=== PATIENT | male | born 1960 | race Caucasian/White ===

== ENCOUNTER 2020-10-08 14:07 | Outpatient (CLI) | payer MEDICARE ==
[2020-10-08] MEDS ORDERED: OMNIPAQUE 350 MG/ML, 100ML BOTTLE ONE (14:30)
[2020-10-08 14:38] LABS: CREATININE 0.89 mg/dL (0.7-1.3)
== END 2020-10-08 23:59 | disposition home or self-care (01) ==
LOC: RAD 14:07
PROVIDERS: ATTEND Physician Assistant Medical
DX: K57.30 Diverticulosis of large intestine without perforation or abscess without bleeding (principal); R16.2 Hepatomegaly with splenomegaly, not elsewhere classified
CPT/HCPCS: 36415; 74177; 82565; Q9967

== ENCOUNTER 2020-12-06 20:24 | Emergency (ER) | payer MEDICARE ==
[2020-12-06] MEDS ORDERED: SODIUM CHLORIDE FLUSH 10ML SYR IVF ONE (22:00)
[2020-12-06 22:22] LABS: BASOPHILS % (AUTO) 1 % (0-1); EOSINOPHILS % (AUTO) 2 % (1-7); LYMPHOCYTES % (AUTO) 17 % (22-44); MEAN CORPUSCULAR HEMOGLOBIN 22.8 pg (27.5-34.5); MEAN CORPUSCULAR HGB CONC 32.7 g/dL (33.2-36.2); MEAN PLATELET VOLUME 8.4 fL (7.4-10.4); MONOCYTES % (AUTO) 7 % (2-9); NEUTROPHILS % (AUTO) 74 % (42-75); PLATELET COUNT 199 x10^3/uL (130-400); RED BLOOD COUNT 5.73 x10^6/uL (4.38-5.82)
[2020-12-06 22:31] LABS: ALBUMIN 4.3 g/dL (3.4-5.0); ANION GAP 4 mmol/L (5-15); CALCIUM 9.1 mg/dL (8.5-10.1); CHLORIDE 106 mmol/L (98-107)
[2020-12-06 22:32] LABS: CREATININE 0.97 mg/dL (0.7-1.3)
--- NOTE | 2020-12-07 02:40 | NUR ---
PT. TO ROOM FROM LOBBY AT THIS TIME.
--- NOTE | 2020-12-07 02:52 | NUR ---
PT. TO ED WITH C/O LUMP ON THROAT X 5 MONTHS. HX: THROAT CA(REMOVED) AND HIV(TREATED). PT. DENIES PAIN. IV ESTABLISHED FOR CT.
--- NOTE | 2020-12-07 03:01 | NUR ---
PT. TO CT VIA [facility].
[2020-12-07] MEDS ORDERED: OMNIPAQUE 350 MG/ML, 100ML BOTTLE ONE (03:11)
[2020-12-07 05:12] VITALS: BP 138/82
== END 2020-12-07 05:13 | disposition home or self-care (01) ==
LOC: ED 20:50
DX: R94.8 Abnormal results of function studies of other organs and systems (principal); E05.20 Thyrotoxicosis with toxic multinodular goiter without thyrotoxic crisis or storm; I10 Essential (primary) hypertension; Z21 Asymptomatic human immunodeficiency virus [HIV] infection status
CPT/HCPCS: 36415; 70491; 80048; 82040; 85025; 99285; Q9967